=== PATIENT | female | born 1950 | race Caucasian/White ===

== ENCOUNTER 2018-03-23 18:53 | Emergency (ER) | payer OTHER, MEDICARE ==
[~2018-03-23] VITALS: Ht 170.2 cm; Wt 94.0 kg
[~2018-03-23 18:53] MED LIST: LISI-167
[2018-03-23] MEDS ORDERED: HYDROcodone/APAP 5/325 TABLET ONE (19:25)
[2018-03-23] MEDS ORDERED: HYDROcodone/APAP 5/325 TABLET PO ONE (19:30)
[2018-03-23 20:05] VITALS: BP 153/100
== END 2018-03-23 20:07 | disposition home or self-care (01) ==
LOC: ED 19:16
DX: L03.032 Cellulitis of left toe (principal); M79.671 Pain in right foot
CPT/HCPCS: 99283

== ENCOUNTER 2020-06-24 18:28 | Emergency (ER) | payer MEDICARE, OTHER ==
[~2020-06-24] VITALS: Ht 167.6 cm; Wt 94.2 kg
--- NOTE | 2020-06-24 18:35 | NUR ---
EKG IN TRIAGE.
--- NOTE | 2020-06-24 18:48 | NUR ---
PT C/O POSTERIOR HEAD PAIN AFTER GLF. PT STATES FALL WAS CAUSED BY DIZZINESS. PT STATES SHE MAY HAVE ALSO LOST CONSCIOUSNESS FOR A FEW SECONDS. PT ALSO HAVING TAIL BONE PAIN, NECK PAIN, AND NAUSEA. PT TOOK 2 ASPIRINS AFTER THE FALL, UNK DOSE.
--- NOTE | 2020-06-24 18:52 | NUR ---
REPORT TO DENITA SAUCEDO.
[2020-06-24] MEDS ORDERED: ONDANSETRON 2MG/ML, 2ML ONE (20:15)
[2020-06-24 20:28] LABS: BASOPHILS % (AUTO) 1 % (0-1); EOSINOPHILS % (AUTO) 11 % (1-7); LYMPHOCYTES % (AUTO) 27 % (22-44); MEAN CORPUSCULAR HEMOGLOBIN 31.2 pg (27.0-34.8); MEAN CORPUSCULAR HGB CONC 33.7 g/dL (32.4-35.8); MEAN PLATELET VOLUME 8.3 fL (7.4-10.4); MONOCYTES % (AUTO) 8 % (2-9); NEUTROPHILS % (AUTO) 54 % (42-75); PLATELET COUNT 193 x10^3/uL (130-400); RED BLOOD COUNT 4.87 x10^6/uL (3.82-5.3); RED CELL DISTRIBUTION WIDTH 13.7 % (9.6-15.2)
[2020-06-24 20:30] LABS: MD NO
[2020-06-24] MEDS ORDERED: ONDANSETRON ODT 4 MG PO ONE (20:30)
[2020-06-24 20:38] LABS: ALBUMIN 3.8 g/dL (3.4-5.0); ANION GAP 4 mmol/L (5-15); CALCIUM 9.1 mg/dL (8.5-10.1); CHLORIDE 112 mmol/L (98-107); CREATININE 0.68 mg/dL (0.55-1.02)
[2020-06-24] MEDS ORDERED: HYDROcodone/APAP 5/325 TABLET PO ONE (22:00)
[2020-06-24] MEDS ORDERED: HYDROcodone/APAP 5/325 TABLET ONE (22:10)
[2020-06-24 22:29] VITALS: BP 134/74
== END 2020-06-24 22:32 | disposition home or self-care (01) ==
LOC: ED 21:22
DX: S00.93XA Contusion of unspecified part of head, initial encounter (principal); M54.5 Low back pain; I10 Essential (primary) hypertension; R94.31 Abnormal electrocardiogram [ECG] [EKG]; W01.0XXA Fall on same level from slipping, tripping and stumbling without subsequent striking against object, initial encounter; Y93.89 Activity, other specified; Y92.89 Other specified places as the place of occurrence of the external cause; Y99.8 Other external cause status
CPT/HCPCS: 36415; 70450; 71045; 80048; 82040; 85025; 93005; 99285; Q0162

== ENCOUNTER 2020-10-04 15:31 | Emergency (ER) | payer MEDICARE, OTHER ==
[~2020-10-04] VITALS: Ht 167.6 cm; Wt 93.8 kg
[2020-10-04 16:31] LABS: BASOPHILS % (AUTO) 0 % (0-1); EOSINOPHILS % (AUTO) 1 % (1-7); LYMPHOCYTES % (AUTO) 11 % (22-44); MEAN CORPUSCULAR HEMOGLOBIN 30.6 pg (27.0-34.8); MEAN CORPUSCULAR HGB CONC 33.3 g/dL (32.4-35.8); MEAN PLATELET VOLUME 7.7 fL (7.4-10.4); MONOCYTES % (AUTO) 4 % (2-9); NEUTROPHILS % (AUTO) 84 % (42-75); PLATELET COUNT 196 x10^3/uL (130-400); RED BLOOD COUNT 5.17 x10^6/uL (3.82-5.3); RED CELL DISTRIBUTION WIDTH 14.1 % (9.6-15.2)
[2020-10-04 16:35] LABS: ALANINE AMINOTRANSFERASE 24 U/L (12-78); ANION GAP 4 mmol/L (5-15); CALCIUM 8.8 mg/dL (8.5-10.1); CHLORIDE 108 mmol/L (98-107); CREATININE 0.92 mg/dL (0.55-1.02)
[2020-10-04 16:37] LABS: ALKALINE PHOSPHATASE 100 U/L (45-117); BILIRUBIN,TOTAL 0.5 mg/dL (0.2-1.0); TOTAL PROTEIN 7.8 g/dL (6.4-8.2)
--- NOTE | 2020-10-04 16:39 | NUR ---
pt presents to ed with c/o R sided abd pain starting last night. pt denies painful urination, states nausea no vomitting. pt a&o, resps even and unlabored, vss, nadn.
--- NOTE | 2020-10-04 16:55 | NUR ---
jorgito Millan at bedside for eval
[2020-10-04] MEDS ORDERED: ONDANSETRON 2MG/ML, 2ML ONE (16:57)
[2020-10-04] MEDS ORDERED: MORPHINE SULFATE 4 MG/ML, 1ML ONE (16:57)
[2020-10-04] MEDS ORDERED: SODIUM CHLORIDE 0.9% 1,000ML IVBOLUS ONE (17:00)
[2020-10-04] MEDS ORDERED: ONDANSETRON 2MG/ML, 2ML IVPush ONE (17:00)
[2020-10-04] MEDS ORDERED: SODIUM CHLORIDE FLUSH 10ML SYR IVF ONE (17:00)
[2020-10-04] MEDS ORDERED: MORPHINE SULFATE 4 MG/ML, 1ML IVPush PRN (17:00)
[2020-10-04] MEDS ORDERED: CEFOTETAN PMX 1GM/50ML 50 ML IV ONE (17:00)
--- NOTE | 2020-10-04 17:01 | NUR ---
piv placed, meds admin per order, pt tolerated well, US at bedside
--- NOTE | 2020-10-04 17:43 | NUR ---
pt to ct
[2020-10-04] MEDS ORDERED: OMNIPAQUE 350 MG/ML, 100ML BOTTLE ONE (17:54)
[2020-10-04] MEDS ORDERED: HYDROmorphone 2 MG/ML, 1ML IVPush ONE (18:00)
[2020-10-04] MEDS ORDERED: HYDROmorphone 2 MG/ML, 1ML ONE (18:00)
--- NOTE | 2020-10-04 18:07 | NUR ---
jorgito Millan at bedside to discuss results and POC. pt sat 83%, placed on 3L nc and now 94%.
[2020-10-04] MEDS ORDERED: KETOROLAC 30 MG/1 ML ONE (18:36)
[2020-10-04] MEDS ORDERED: KETOROLAC 30 MG/1 ML IVPush ONE (19:00)
--- NOTE | 2020-10-04 19:14 | NUR ---
ua collected and sent to lab at this time.
[2020-10-04 19:15] VITALS: BP 134/87
[2020-10-04 19:26] LABS: MICROSCOPIC NOT IND
--- NOTE | 2020-10-04 19:54 | NUR ---
pt educated on dc instructions, verbalized understanding. pt ambulatory to dc desk with steady gait.
== END 2020-10-04 20:10 | disposition home or self-care (01) ==
LOC: ED 19:45
DX: N20.1 Calculus of ureter (principal); R10.31 Right lower quadrant pain; R11.0 Nausea; I10 Essential (primary) hypertension
CPT/HCPCS: 36415; 74177; 76700; 80053; 81003; 83690; 85025; 96365; 96375; 99285; J1170; J1885; J2270; J2405; J7030; Q9967